=== PATIENT | female | born 1970 | race Caucasian/White ===

== ENCOUNTER 2016-10-27 16:40 | Emergency (ER) | payer OTHER ==
[~2016-10-27] VITALS: Ht 172.7 cm; Wt 129.5 kg
[~2016-10-27 16:40] MED LIST: ASPIR-TRIN325 M1 PO; ATORVASTATIN CA10 MG PO; EFFEXOR XR37.5 MG PO; GLIPIZIDE5 MG PO; Glucophage XR,Fortam PO; LO-DOSE ASPIRIN81 M1 PO; LOPRESSOR25 MG PO; METFORMIN HCL1000 MG PO; NORCO 5/3251 TABLET PO; OMEGA-3 + VITA1 EAC1 PO; ONCE DAILY1 EACH PO; Omega III EPA + DHA PO; PROZAC40 MG PO; THERAGRAN1 TABLET PO; ZOFRAN4 MG PO
[2016-10-27 20:25] VITALS: BP 145/78
== END 2016-10-27 20:26 | disposition home or self-care (01) ==
LOC: EME 16:40
DX: M79.621 Pain in right upper arm (principal); Z86.718 Personal history of other venous thrombosis and embolism; E11.9 Type 2 diabetes mellitus without complications
CPT/HCPCS: 93971; 99281; 99283